=== PATIENT | female | born 1970 | race Caucasian/White ===

== ENCOUNTER 2021-07-27 01:44 | Emergency (ER) | payer MEDICAID ==
[~2021-07-27] VITALS: Ht 157.5 cm; Wt 97.6 kg
[~2021-07-27 01:44] MED LIST: HYDR-4353 PO; HYDR1TAB PO; NO HOME MEDS; ZOF4T PO
[2021-07-27 02:47] LABS: URINE HCG NEGATIVE (NEG)
[2021-07-27 02:50] LABS: CLARITY,URINE CLEAR (Clear); GLUCOSE, URINE NEGATIVE (Neg); KETONES,URINE NEGATIVE (Neg); LEUKOCYTE ESTERASE ,URINE NEGATIVE (Neg); NITRITES, URINE NEGATIVE (Neg); OCCULT BLOOD,URINE NEGATIVE (Neg); PROTEIN,URINE NEGATIVE (Neg); UROBILINOGEN,URINE 0.2 E.U/dL (0.2-1.0)
[2021-07-27 02:54] LABS: COLOR,URINE STRAW (Yellow); UA COLLECTION TYPE CLN CATCH MIDSTREAM
[2021-07-27 03:18] LABS: BASOPHILS # (AUTO) 0.1 X10'3 (0-0.2); BASOPHILS % (AUTO) 1.1 % (0-1); EOSINOPHILS # (AUTO) 0.2 X10'3 (0-0.9); EOSINOPHILS % (AUTO) 2.1 % (0-6); HEMOGLOBIN 13.1 g/dl (12.0-16.0); LYMPHOCYTES # (AUTO) 2.2 X10'3 (1.1-4.8); LYMPHOCYTES % (AUTO) 26.8 % (21-51); MEAN CORPUSCULAR HEMOGLOBIN 29.2 PG (27.0-31.0); MEAN CORPUSCULAR HGB CONC 33.5 g/dL (33.0-36.5); MEAN CORPUSCULAR VOLUME 87.2 FL (78-98); MEAN PLATELET VOLUME 7.5 FL (7.4-10.4); MONOCYTES # (AUTO) 0.7 X10'3 (0-0.9); MONOCYTES % (AUTO) 8.3 % (2-12); NEUTROPHILS # (AUTO) 5.1 X10'3 (1.8-7.7); NEUTROPHILS % (AUTO) 61.7 % (42-75); PLATELET COUNT 401 X10'3 (140-440); RED BLOOD COUNT 4.47 X10'6 (4.20-5.60); RED CELL DISTRIBUTION WIDTH 13.9 % (11.5-14.5); WHITE BLOOD COUNT 8.2 X10'3 (4.5-11.0)
[2021-07-27 03:24] LABS: ALBUMIN 3.5 G/DL (3.4-5.0); ANION GAP 8 (8-16); BILIRUBIN,TOTAL 0.3 MG/DL (0.1-1.0); BLOOD UREA NITROGEN 12 MG/DL (7-18); CALCIUM 9.1 MG/DL (8.5-10.1); CHLORIDE 101 MMOL/L (99-107); CREATININE 0.92 MG/DL (0.40-0.90); GLUCOSE 132 MG/DL (70-104); POTASSIUM 3.6 MMOL/L (3.5-5.1); SODIUM 138 MMOL/L (135-145); TOTAL CARBON DIOXIDE 28.9 MMOL/L (24-32); TOTAL PROTEIN 7.6 G/DL (6.4-8.2); eGFR 65 ML/MIN
[2021-07-27 03:25] LABS: ALANINE AMINOTRANSFERASE 23 U/L (12-78); ALBUMIN/GLOBULIN RATIO 0.9 (1.1-1.5); ALKALINE PHOSPHATASE 106 IU/L (46-116); ASPARTATE AMINO TRANSFERASE 11 U/L (10-37); LIPASE 105 U/L (73-393)
[2021-07-27] MEDS ORDERED: morphine 4 MG/ML inj SYRINge IV ONE ×2 (03:25→04:10)
[2021-07-27] MEDS ORDERED: ondansetron/PF 4mg/2ml inj IV ONE (03:25)
[2021-07-27 03:46] LABS: BILIRUBIN,DIRECT 0.1 MG/DL (0-0.3)
[2021-07-27 04:07] VITALS: BP 177/96
--- NOTE | 2021-07-27 04:08 | NUR ---
PATIENT PAIN DOWN TO "7." SHE HAD RECEIVED MORPHINE 4MG, ZOFRAN 4MG. MD CONSULTED. AN ADDITIONAL MORPHINE WAS RECEIVED. PATIENT HAS BEEN PLACED IN ROOM 18. NO MAIN ER BEDS ARE OPEN AT THIS TIME.
[2021-07-27] MEDS ORDERED: HYDR-3965 PO (05:50)
== END 2021-07-27 05:42 | disposition home or self-care (01) ==
LOC: ER 01:44
DX: N20.0 Calculus of kidney (principal); R10.11 Right upper quadrant pain; R11.0 Nausea; Z87.442 Personal history of urinary calculi; Z87.440 Personal history of urinary (tract) infections; Z90.49 Acquired absence of other specified parts of digestive tract; Z79.899 Other long term (current) drug therapy
CPT/HCPCS: 36415; 74176; 80053; 81003; 81025; 82248; 83690; 85025; 96374; 96375; 96376; 99284; J2270; J2405

== ENCOUNTER 2024-08-06 05:16 | Emergency (ER) | payer BC, MEDICAID ==
[~2024-08-06] VITALS: Ht 152.4 cm; Wt 87.8 kg
[2024-08-06 05:26] VITALS: BP 154/90; PULSE 86; RESP 18; TEMP 98.7; O2SAT 98
[2024-08-06 06:15] LABS: URINE HCG NEGATIVE (NEG)
[2024-08-06 06:17] LABS: BILIRUBIN,URINE NEGATIVE (Neg); CLARITY,URINE SLIGHTLY CLOUDY (Clear); COLOR,URINE YELLOW (Yellow); GLUCOSE, URINE NEGATIVE (Neg); KETONES,URINE NEGATIVE (Neg); LEUKOCYTE ESTERASE ,URINE NEGATIVE (Neg); NITRITES, URINE NEGATIVE (Neg); OCCULT BLOOD,URINE MODERATE (Neg); PROTEIN,URINE 100 mg/dl (Neg); UROBILINOGEN,URINE 0.2 E.U/dL (0.2-1.0)
[2024-08-06 06:22] LABS: UA COLLECTION TYPE CLN CATCH MIDSTREAM
[2024-08-06 06:24] LABS: RBC,URINE TNTC /HPF (0-2)
[2024-08-06 06:25] LABS: BACTERIA,URINE 1+ /HPF (Neg); CAL OXALATE CRYSTALS 1+ /HPF (NEGATIVE); SQUAMOUS EPITHELIAL CELL,UR FEW /LPF (FEW)
== END 2024-08-06 08:08 | disposition left against medical advice (07) ==
LOC: ER 05:18
DX: R10.84 Generalized abdominal pain (principal); Z53.21 Procedure and treatment not carried out due to patient leaving prior to being seen by health care provider
CPT/HCPCS: 81001; 81025; 87088

== ENCOUNTER 2024-08-13 03:51 | Emergency (ER) | payer BC ==
[~2024-08-13] VITALS: Ht 152.4 cm; Wt 86.9 kg
[2024-08-13] MEDS ORDERED: ketorolac trometh 15mg/ml vial 15 MG/ML ML IV ONE (05:40)
[2024-08-13] MEDS: meperidine/PF 100mg/ml syringe IV ONE (06:11)
[2024-08-13] MEDS: meperidine/PF 50mg/ml syringe IV ONE (06:13)
[2024-08-13] MEDS: normal saline 1000ML IV soln IVB ONE (06:13)
[2024-08-13] MEDS: ketorolac trometh 30MG/ML vial 30 MG/ML VIAL IV ONE (06:22)
[2024-08-13 07:34] LABS: BASOPHILS # (AUTO) 0.1 X10'3 (0-0.2); BASOPHILS % (AUTO) 1.3 % (0-1); EOSINOPHILS # (AUTO) 0.2 X10'3 (0-0.9); EOSINOPHILS % (AUTO) 2.7 % (0-6); HEMATOCRIT 32.6 % (35.0-45.0); HEMOGLOBIN 10.9 g/dl (12.0-16.0); LYMPHOCYTES # (AUTO) 1.7 X10'3 (1.1-4.8); LYMPHOCYTES % (AUTO) 24.1 % (21-51); MEAN CORPUSCULAR HEMOGLOBIN 29.4 PG (27.0-31.0); MEAN CORPUSCULAR HGB CONC 33.4 g/dL (33.0-36.5); MEAN PLATELET VOLUME 6.8 FL (7.4-10.4); MONOCYTES # (AUTO) 0.8 X10'3 (0-0.9); MONOCYTES % (AUTO) 11.8 % (2-12); NEUTROPHILS # (AUTO) 4.2 X10'3 (1.8-7.7); NEUTROPHILS % (AUTO) 60.1 % (42-75); PLATELET COUNT 304 X10'3 (140-440); RED CELL DISTRIBUTION WIDTH 14.7 % (11.5-14.5)
[2024-08-13 07:44] LABS: ALBUMIN 2.7 G/DL (3.4-5.0); ANION GAP 7 (8-16); BLOOD UREA NITROGEN 13 MG/DL (7-18); BUN/CREATININE RATIO 21.7 (10.0-20.0); CALCIUM 7.3 MG/DL (8.5-10.1); CHLORIDE 105 MMOL/L (99-107); GLUCOSE 101 MG/DL (70-104); POTASSIUM 3.7 MMOL/L (3.5-5.1); SODIUM 138 MMOL/L (135-145); TOTAL CARBON DIOXIDE 25.9 MMOL/L (24-32); eCRCL 78 ML/MIN; eGFR > 90 ML/MIN
[2024-08-13 08:30] LABS: BILIRUBIN,URINE NEGATIVE (Neg); CLARITY,URINE CLEAR (Clear); COLOR,URINE YELLOW (Yellow); GLUCOSE, URINE NEGATIVE (Neg); KETONES,URINE NEGATIVE (Neg); LEUKOCYTE ESTERASE ,URINE NEGATIVE (Neg); NITRITES, URINE NEGATIVE (Neg); OCCULT BLOOD,URINE SMALL (Neg); PROTEIN,URINE NEGATIVE (Neg); UROBILINOGEN,URINE 0.2 E.U/dL (0.2-1.0)
[2024-08-13 08:33] LABS: UA COLLECTION TYPE CLN CATCH MIDSTREAM
[2024-08-13 08:34] LABS: BACTERIA,URINE FEW /HPF (Neg); MUCUS STRANDS FEW /LPF (Neg); SQUAMOUS EPITHELIAL CELL,UR MODERATE /LPF (FEW); WBC,URINE 20-30 /HPF (0-4)
[2024-08-13] MEDS ORDERED: FLO0.4C PO (08:41)
[2024-08-13] MEDS ORDERED: CEPH500C2 PO (08:41)
[2024-08-13] MEDS ORDERED: KETO10TA2 PO (08:47)
[2024-08-13 09:05] VITALS: BP 125/75; PULSE 78; RESP 14; TEMP 97.9; O2SAT 98
== END 2024-08-13 09:12 | disposition home or self-care (01) ==
LOC: ER 05:46
DX: N20.0 Calculus of kidney (principal); F17.210 Nicotine dependence, cigarettes, uncomplicated; Z87.440 Personal history of urinary (tract) infections; Z90.49 Acquired absence of other specified parts of digestive tract; Z98.890 Other specified postprocedural states
CPT/HCPCS: 36415; 74176; 80048; 81001; 85025; 87088; 96361; 96374; 96375; 99285; J1885; J2175; J7030

== ENCOUNTER 2024-08-18 16:13 | Inpatient (IN) | payer BC ==
[~2024-08-18] VITALS: Ht 152.4 cm; Wt 87.1 kg
[~2024-08-18 16:13] MED LIST changes: +CEPH500C2 PO; +FLO0.4C PO; +KETO10TA2 PO
[2024-08-18 17:01] LABS: BILIRUBIN,URINE NEGATIVE (Neg); CLARITY,URINE CLEAR (Clear); COLOR,URINE YELLOW (Yellow); GLUCOSE, URINE NEGATIVE (Neg); KETONES,URINE NEGATIVE (Neg); LEUKOCYTE ESTERASE ,URINE NEGATIVE (Neg); NITRITES, URINE NEGATIVE (Neg); OCCULT BLOOD,URINE SMALL (Neg); PROTEIN,URINE NEGATIVE (Neg); UROBILINOGEN,URINE 0.2 E.U/dL (0.2-1.0)
[2024-08-18 17:08] LABS: UA COLLECTION TYPE CLN CATCH MIDSTREAM; URINE HCG NEGATIVE (NEG)
[2024-08-18 17:09] LABS: BACTERIA,URINE FEW /HPF (Neg); MUCUS STRANDS FEW /LPF (Neg); RBC,URINE 0-2 /HPF (0-2); SQUAMOUS EPITHELIAL CELL,UR FEW /LPF (FEW)
[2024-08-18 17:10] LABS: STARCH,URINE FEW /HPF (NEGATIVE)
[2024-08-18 17:13] LABS: BASOPHILS # (AUTO) 0.1 X10'3 (0-0.2); BASOPHILS % (AUTO) 1.1 % (0-1); EOSINOPHILS # (AUTO) 0.1 X10'3 (0-0.9); EOSINOPHILS % (AUTO) 1.5 % (0-6); LYMPHOCYTES # (AUTO) 0.7 X10'3 (1.1-4.8); LYMPHOCYTES % (AUTO) 15.3 % (21-51); MEAN CORPUSCULAR HEMOGLOBIN 29.2 PG (27.0-31.0); MEAN CORPUSCULAR HGB CONC 33.3 g/dL (33.0-36.5); MEAN CORPUSCULAR VOLUME 87.8 FL (78-98); MONOCYTES # (AUTO) 0.6 X10'3 (0-0.9); MONOCYTES % (AUTO) 12.5 % (2-12); NEUTROPHILS # (AUTO) 3.4 X10'3 (1.8-7.7); NEUTROPHILS % (AUTO) 69.6 % (42-75); PLATELET COUNT 319 X10'3 (140-440); RED CELL DISTRIBUTION WIDTH 14.9 % (11.5-14.5); WHITE BLOOD COUNT 4.9 X10'3 (4.5-11.0)
[2024-08-18 17:28] LABS: ALBUMIN 3.1 G/DL (3.4-5.0); ALBUMIN/GLOBULIN RATIO 0.8 (1.1-1.5); ALKALINE PHOSPHATASE 87 IU/L (46-116); ANION GAP 3 (8-16); ASPARTATE AMINO TRANSFERASE 15 U/L (10-37); BILIRUBIN,TOTAL 0.2 MG/DL (0.1-1.0); CALCIUM 8.5 MG/DL (8.5-10.1); CHLORIDE 100 MMOL/L (99-107); CREATININE 0.67 MG/DL (0.40-0.90); GLUCOSE 132 MG/DL (70-104); LIPASE 24 U/L (16-77); POTASSIUM 3.5 MMOL/L (3.5-5.1); SODIUM 133 MMOL/L (135-145); TOTAL CARBON DIOXIDE 30.5 MMOL/L (24-32); TOTAL PROTEIN 6.8 G/DL (6.4-8.2); eCRCL 70 ML/MIN; eGFR > 90 ML/MIN
[2024-08-18 17:44] LABS: ALANINE AMINOTRANSFERASE 19 U/L (12-78)
[2024-08-18 17:56] LABS: BLOOD UREA NITROGEN 9 MG/DL (7-18); BUN/CREATININE RATIO 13.4 (10.0-20.0)
[2024-08-18] MEDS: ondansetron/PF 4mg/2ml inj IV ONE (19:10)
[2024-08-18] MEDS: normal saline 1000ml 1,000 ML IV ONE (19:10)
[2024-08-18] MEDS: ketorolac trometh 15mg/ml vial 15 MG/ML ML IV ONE (19:12)
[2024-08-18] MEDS ORDERED: acetaminophen 325mg tablet PO PRN (21:05)
[2024-08-18] MEDS ORDERED: magnesium Cl slow-release 64mg tablet PO PRN (21:05)
[2024-08-18] MEDS ORDERED: magnesium sulf-water 4G/100mL 100 ML IV PRN (21:05)
[2024-08-18] MEDS ORDERED: potassium Cl 40MEQ/1/2NS 520ml 520 ML IV PRN (21:05)
[2024-08-18] MEDS ORDERED: magnesium sulf-water 2g/50mL 50 ML IV PRN (21:05)
[2024-08-18] MEDS ORDERED: mag hydrox/Alum hydrox/simeth 30ml oral suspension PO PRN (21:05)
[2024-08-18] MEDS ORDERED: magnesium hydroxide 30ml (MOM) UD suspension PO PRN (21:05)
[2024-08-18] MEDS ORDERED: potassium Cl 20 mEq SR tablet PO PRN ×2 (21:05)
[2024-08-18] MEDS ORDERED: ondansetron/PF 4mg/2ml inj IV PRN (21:05)
[2024-08-18] MEDS: HYDROcodone/acetaminophen 10/325mg tab PO PRN (21:25)
[2024-08-19] VITALS (19 sets, daily range): BP systolic 103–150; BP diastolic 48–84; PULSE 72–95; RESP 15–21; TEMP 98.6–99.7; O2SAT 90–100
[2024-08-19] MEDS: normal saline 1000ml 1,000 ML IV SCH (00:47)
[2024-08-19] MEDS: tamsulosin 0.4mg capsule PO SCH (00:59)
[2024-08-19] MEDS ORDERED: OMEP40CA21 PO (01:01)
[2024-08-19] MEDS ORDERED: EST1T PO (01:01)
[2024-08-19] MEDS ORDERED: LISI20TA28 PO (01:01)
[2024-08-19 01:26] LABS: APTT 27 SECONDS (22-32); PROTHROMBIN TIME 10.6 SECONDS (9.0-12.0)
[2024-08-19 01:27] LABS: ALANINE AMINOTRANSFERASE 26 U/L (12-78); ALBUMIN 2.8 G/DL (3.4-5.0); ALBUMIN/GLOBULIN RATIO 0.8 (1.1-1.5); ALKALINE PHOSPHATASE 84 IU/L (46-116); ANION GAP 5 (8-16); ASPARTATE AMINO TRANSFERASE 30 U/L (10-37); BILIRUBIN,TOTAL 0.1 MG/DL (0.1-1.0); BLOOD UREA NITROGEN 11 MG/DL (7-18); BUN/CREATININE RATIO 26.2 (10.0-20.0); CALCIUM 7.9 MG/DL (8.5-10.1); CHLORIDE 105 MMOL/L (99-107); CREATININE 0.42 MG/DL (0.40-0.90); GLUCOSE 105 MG/DL (70-104); MAGNESIUM 1.6 MG/DL (1.5-2.4); SODIUM 140 MMOL/L (135-145); TOTAL CARBON DIOXIDE 29.6 MMOL/L (24-32); TOTAL PROTEIN 6.3 G/DL (6.4-8.2); eCRCL 111 ML/MIN; eGFR > 90 ML/MIN
[2024-08-19 01:39] LABS: POTASSIUM 3.8 MMOL/L (3.5-5.1)
[2024-08-19 01:49] LABS: BASOPHILS # (AUTO) 0.1 X10'3 (0-0.2); BASOPHILS % (AUTO) 1.3 % (0-1); EOSINOPHILS # (AUTO) 0.1 X10'3 (0-0.9); EOSINOPHILS % (AUTO) 1.5 % (0-6); HEMATOCRIT 32.4 % (35.0-45.0); HEMOGLOBIN 10.9 g/dl (12.0-16.0); LYMPHOCYTES % (AUTO) 19.6 % (21-51); MEAN CORPUSCULAR HEMOGLOBIN 29.4 PG (27.0-31.0); MEAN CORPUSCULAR HGB CONC 33.6 g/dL (33.0-36.5); MEAN CORPUSCULAR VOLUME 87.6 FL (78-98); MEAN PLATELET VOLUME 7.3 FL (7.4-10.4); MONOCYTES # (AUTO) 0.7 X10'3 (0-0.9); MONOCYTES % (AUTO) 14.5 % (2-12); NEUTROPHILS # (AUTO) 3.1 X10'3 (1.8-7.7); NEUTROPHILS % (AUTO) 63.1 % (42-75); PLATELET COUNT 279 X10'3 (140-440); RED CELL DISTRIBUTION WIDTH 14.7 % (11.5-14.5); WHITE BLOOD COUNT 4.9 X10'3 (4.5-11.0)
[2024-08-19] MEDS: diphenhydrAMINE 25mg capsule PO ONE (01:50)
[2024-08-19] MEDS: diphenhydrAMINE 50 mg/ml inj IV ONE (03:02)
[2024-08-19] MEDS: HYDROcodone/acetaminophen 5mg/325mg tablet PO PRN (04:35)
[2024-08-19] MEDS ORDERED: ipratropium/albuterol 3ml nebule NEB PRN (04:55)
[2024-08-19] MEDS: docusate sod 100mg capsule PO SCH (08:00)
[2024-08-19] MEDS: K and/or MAG REPLACEMENT MC SCH (08:00)
[2024-08-19] MEDS ORDERED: albuterol 2.5 MG/3 ML nebule NEB PRN (08:05)
[2024-08-19] MEDS: CefTRIAXone/D5W-Rocephin 1gm 50 ML IV SCH (08:18)
[2024-08-19] MEDS: pantoprazole 40 MG vial IV SCH (08:18)
[2024-08-19] MEDS: lactobacillus rhamnosus 10,000 MMU CELLS/CAPSULE PO SCH (08:19)
[2024-08-19] MEDS: ipratropium/albuterol 3ml nebule NEB SCH (08:47)
[2024-08-19] MEDS ORDERED: meperidine/PF 25mg/ml syringe IV PRN ×3 (09:55)
[2024-08-19] MEDS: ringers solution, lacted 1,000 ML IV SCH (09:55)
[2024-08-19] MEDS ORDERED: morphine 4 MG/ML inj SYRINge IV PRN (09:55)
[2024-08-19] MEDS ORDERED: ondansetron/PF 4mg/2ml inj IV PRN (09:55)
[2024-08-19] MEDS ORDERED: morphine 2 MG/ML inj. syringe IV PRN (09:55)
[2024-08-19] MEDS ORDERED: proCHLORperazine 10 MG/2 ml inj IV PRN (09:55)
[2024-08-19] MEDS ORDERED: sevoflurane 250ml liquid IH ONE (09:58)
[2024-08-19] MEDS ORDERED: fentaNYL/PF 50MCG/1 ML 2ML syringe ONE (10:01)
[2024-08-19] MEDS ORDERED: midazolam 1 mg/ML 2ml injection ONE (10:02)
[2024-08-19] MEDS ORDERED: propofol inj 20 ML IV ONE (10:02)
[2024-08-19] MEDS ORDERED: ketorolac trometh 30MG/ML vial 30 MG/ML VIAL ONE (10:22)
[2024-08-19] MEDS ORDERED: CEPH-585 PO (10:38)
[2024-08-19] MEDS: iohexol 300 MG/1 ML 10ml vial IJ ONE (10:46)
[2024-08-19] MEDS ORDERED: HYDR-3964 PO (14:30)
[2024-08-19] MEDS ORDERED: azithromycin 250mg tablet PO SCH (20:00)
== END 2024-08-19 17:11 | disposition home or self-care (01) | DRG 660 ==
LOC: ER 16:14 → ED HOLD 21:06 → SUR 3N 08-19 03:20
PROVIDERS: ADMIT Internal Medicine Critical Care Medicine; ATTEND Family Medicine
PROC: BT1D1ZZ Fluoroscopy of Right Kidney, Ureter and Bladder using Low Osmolar Contrast (ICD-10-PCS; 2024-08-19)
PROC: 0TF68ZZ Fragmentation in Right Ureter, Via Natural or Artificial Opening Endoscopic (ICD-10-PCS; 2024-08-19)
PROC: 0T768DZ Dilation of Right Ureter with Intraluminal Device, Via Natural or Artificial Opening Endoscopic (ICD-10-PCS; principal; 2024-08-19 09:58)
DX: N13.6 Pyonephrosis (principal); E87.1 Hypo-osmolality and hyponatremia; J44.1 Chronic obstructive pulmonary disease with (acute) exacerbation; I10 Essential (primary) hypertension; K21.9 Gastro-esophageal reflux disease without esophagitis; D64.9 Anemia, unspecified; Z79.899 Other long term (current) drug therapy; Z90.49 Acquired absence of other specified parts of digestive tract
CPT/HCPCS: 36415; 74420; 76000; 80053; 81001; 81025; 82948; 83690; 83735; 83930; 85025; 85610; 85730; 87081; 87088; 93005; 94640; 94760; 99285; A4615; A4618; A7000; C2617; G0378; J0696; J1200; J1885; J2250; J2405; J2470; J2704; J3010; J7030; Q9967